=== PATIENT | female | born 1935 | race Caucasian/White ===

== ENCOUNTER 2016-10-05 15:05 | Emergency (ER) | payer MEDICARE, OTHER ==
[2016-10-05] MEDS ORDERED: Sodium Chloride 0.9% 5 ML Syringe FLUSH PRN (15:21)
--- NOTE | 2016-10-05 15:29 | EDM.PDOC ---
ED HPI NEURO - General Chief Complaint: Headache Stated Complaint: Possible TIA Time Seen by Provider: 10/05/16 15:21 Source of Information: Reports: Patient, [facility] records History Limitations: Reports: No limitations - History of Present Illness INITIAL COMMENTS - FREE TEXT/NARRATIVE: PT STATES SHE MAY HAVE PASSED OUT THIS AM AT 0800 WHILE SITTING IN CHAIR AT [employer]. APPROX DURATION WAS 5 MINUTES. HAD ANOTHER SIMILAR EPISODE AT 1430 TODAY AND [facility] STAFF BROUGHT PT TO ER. PT STATES SHE THOUGHT IT WAS A PANIC ATTACK WHICH ACCORDING TO SON HAS THEM OFTEN. DENIES NEW NUMBNESS, FALL, CP, SOB, OR FEVER. 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 Symptom Onset Date: 10/05/16 Symptom Onset Time: 08:00 Timing/Duration: Reports: Minutes: Location (Neuro Complaint): Reports: face Severity: mild Improves with: Reports: None Worsens with: Reports: None Associated Symptoms: Reports: headaches, syncope, nausea/vomiting. Denies: shortness of breath, chest pain, fever/chills - Related Data Allergies/ADRs: Allergies Allergy/AdvReac Type Severity Reaction Status Date / Time hydrochlorathiazide Allergy Cannot Uncoded 10/05/16 15:47 Remember Home Meds: Home Meds Cholecalciferol (Vitamin D3) [Vitamin D3] 1,000 units PO DAILY 11/06/14 [History ] Gluc 2KCl/Chondr/Pavel Hy/Hy Ac [Glucosamine & Chondroitin Cap] 1,000 mg PO DAILY 11/06/14 [History] Latanoprost [Latanoprost] 1 drop EYEBOTH DAILY 11/06/14 [History] Losartan [Cozaar] 100 mg PO DAILY 11/06/14 [History] Lovastatin [Lovastatin] 20 mg PO DAILY 11/06/14 [History] Lutein 20 mg PO DAILY 11/06/14 [History] Metoprolol Tartrate [Lopressor] 100 mg PO DAILY 11/06/14 [History] Naproxen Sodium [Aleve] 220 mg PO DAILY 11/06/14 [History] Niacin 1,500 mg PO DAILY 11/06/14 [History] Omeprazole [Omeprazole] 20 mg PO DAILY 11/06/14 [History] Triamcinolone Acetonide [Kenalog 0.1% Crm] 15 gm TOP TID 11/06/14 [History] amLODIPine Besylate [Amlodipine Besylate] 2.5 mg PO DAILY 11/06/14 [History] Social & Family History - Tobacco Use Smoking Status *Q: Current Every Day Smoker Years of Tobacco use: 0 Used Tobacco, but Quit: No - Alcohol Use Days Per Week of Alcohol Use: 0 - Recreational Drug Use Recreational Drug Use: No - Living Situation & Occupation Living situation: Reports: alone Occupation: retired ED ROS GENERAL - Review of Systems Review Of Systems: ROS reveals no pertinent complaints other than HPI. Constitutional: Reports: no symptoms HEENT: Reports: No symptoms Respiratory: Reports: No Symptoms Cardiovascular: Reports: No symptoms Endocrine: Reports: no symptoms GI/Abdominal: Reports: Nausea : Reports: no symptoms Musculoskeletal: Reports: no symptoms Skin: Reports: no symptoms Neurological: Reports: Headache, Numbness, Pre-Existing Deficit Psychiatric: Reports: No symptoms Hematologic/Lymphatic: Reports: no symptoms Immunologic: Reports: no symptoms ED EXAM, NEURO - Physical Exam Exam: See Below Exam Limited By: No limitations General Appearance: alert, WD/WN, no apparent distress Eye Exam: bilateral eye: normal inspection Ears: normal external exam, normal canal, normal TMs Nose: normal inspection, normal mucosa, no blood Throat/Mouth: Normal inspection, Normal oropharynx, No airway compromise Head Exam: atraumatic, normocephalic Neck: normal inspection, supple Respiratory/Chest: no respiratory distress, lungs clear, normal breath sounds, no accessory muscle use, chest non-tender Cardiovascular: regular rate, rhythm, systolic murmur GI/Abdominal: normal bowel sounds, soft, non tender, no organomegaly, no distention, no abnormal bruit, no mass Neurological: alert, oriented x 3, abnormal light touch Back Exam: normal inspection. No: CVA tenderness (L), CVA tenderness (R) Extremities: normal inspection, non-tender Psychiatric: normal affect, normal mood Skin Exam: Warm, Dry, Intact, Normal color, No rash Course - Vital Signs Last Recorded V/S: Last Vital Signs Temp 96.5 F 10/05/16 15:32 Pulse 52 L 10/05/16 15:32 Resp 16 10/05/16 15:32 BP 169/50 H 10/05/16 15:32 Pulse Ox 96 10/05/16 15:32 - Orders/Labs/Meds Orders: Active Orders 24 hr Category Date Time Status EKG Documentation Completion [RC] ASDIRECTED Care 10/05/16 15:22 Active Peripheral IV Care [RC] . DIRECTED Care 10/05/16 15:22 Active Chest 1V Frontal [CR] Stat Exams 10/05/16 15:21 Taken Head wo Cont [CT] Stat Exams 10/05/16 15:21 Taken Sodium Chloride 0.9% [Syrex Flush] Med 10/05/16 15:21 Active 5 ml FLUSH Q8HR PRN cefTRIAXone [Rocephin] Med 10/05/16 17:27 Once 1 gm IVPUSH ONETIME ONE Peripheral IV Insertion Adult [OM.PC] Urgent Oth 10/05/16 15:21 Ordered Saline Lock Insert [OM.PC] Stat Oth 10/05/16 15:21 Ordered EKG 12 Lead [EK] Stat Ther 10/05/16 15:21 Ordered Medication Orders Sodium Chloride (Syrex Flush) 5 ml FLUSH Q8HR PRN PRN Reason: Keep Vein Open Labs: Laboratory Tests 10/05/16 10/05/16 10/05/16 Range/Units 15:35 15:35 15:35 WBC 7.8 (5.0-10.0) 10^3/uL RBC 4.79 (3.80-5.50) 10^6/uL Hgb 12.8 (12.0-16.0) g/dL Hct 39.3 (37.0-47.0) % MCV 82.1 (82.0-92.0) fL MCH 26.8 L (27.0-31.0) pg MCHC 32.7 (32.0-36.0) g/dL RDW 14.6 H (11.5-14.5) % Plt Count 241 (150-300) 10^3/uL MPV 8.1 (7.4-10.4) fL Add Manual Diff Yes Neutrophils % (Manual) 59 (50-70) % Band Neutrophils % 1 L (4-12) % Lymphocytes % (Manual) 29 (20-40) % Monocytes % (Manual) 5 (2-8) % Eosinophils % (Manual) 5 H (1-3) % Basophils % (Manual) 1 (0-1) % PT 9.9 (8.9-11.4) SEC INR 1.0 (0.9-1.1) APTT 27.7 (20.8-31.2) SEC Sodium 141 (136-145) mmol/L Potassium 4.6 (3.3-5.3) mmol/L Chloride 103 (98-115) mmol/L Carbon Dioxide 31.3 (21.0-32.0) mmol/L BUN 17 (6-25) mg/dL Creatinine 0.85 (0.51-1.17) mg/dL Est Cr Clr Drug Dosing 41.48 mL/min Estimated GFR (MDRD) > 60 mL/min Glucose 98 (70-110) mg/dL Calcium 9.0 (8.7-10.3) mg/dL Total Bilirubin 0.3 (0.2-1.0) mg/dL AST 33 (15-37) U/L ALT 28 (12-78) U/L Alkaline Phosphatase 88 (46-116) IU/L Troponin I 0.05 (0.00-0.070) ng/mL Total Protein 8.3 H (6.4-8.2) g/dL Albumin 3.69 (3.00-4.80) g/dL Specimen Type Urine Color (YELLOW) Urine Appearance (CLEAR) Urine pH (5.0-9.0) Ur Specific [place] (1.005-1.030) Urine Protein (NEGATIVE) mg/dL Urine Glucose (UA) (NEGATIVE) mg/dL Urine Ketones (NEGATIVE) mg/dL Urine Occult Blood (NEGATIVE) Urine Nitrite (NEGATIVE) Urine Bilirubin (NEGATIVE) Urine Urobilinogen (0.2-1.0) E.U./dL Ur Leukocyte Esterase (NEGATIVE) Urine RBC /HPF Urine WBC /HPF Urine Bacteria (NONE TO FEW) /HPF 10/05/16 Range/Units 16:30 WBC (5.0-10.0) 10^3/uL RBC (3.80-5.50) 10^6/uL Hgb (12.0-16.0) g/dL Hct (37.0-47.0) % MCV (82.0-92.0) fL MCH (27.0-31.0) pg MCHC (32.0-36.0) g/dL RDW (11.5-14.5) % Plt Count (150-300) 10^3/uL MPV (7.4-10.4) fL Add Manual Diff Neutrophils % (Manual) (50-70) % Band Neutrophils % (4-12) % Lymphocytes % (Manual) (20-40) % Monocytes % (Manual) (2-8) % Eosinophils % (Manual) (1-3) % Basophils % (Manual) (0-1) % PT (8.9-11.4) SEC INR (0.9-1.1) APTT (20.8-31.2) SEC Sodium (136-145) mmol/L Potassium (3.3-5.3) mmol/L Chloride (98-115) mmol/L Carbon Dioxide (21.0-32.0) mmol/L BUN (6-25) mg/dL Creatinine (0.51-1.17) mg/dL Est Cr Clr Drug Dosing mL/min Estimated GFR (MDRD) mL/min Glucose (70-110) mg/dL Calcium (8.7-10.3) mg/dL Total Bilirubin (0.2-1.0) mg/dL AST (15-37) U/L ALT (12-78) U/L Alkaline Phosphatase (46-116) IU/L Troponin I (0.00-0.070) ng/mL Total Protein (6.4-8.2) g/dL Albumin (3.00-4.80) g/dL Specimen Type Urincath Urine Color Yellow (YELLOW) Urine Appearance Slightly cloudy H (CLEAR) Urine pH 5.5 (5.0-9.0) Ur Specific [place] 1.015 (1.005-1.030) Urine Protein Negative (NEGATIVE) mg/dL Urine Glucose (UA) Negative (NEGATIVE) mg/dL Urine Ketones Negative (NEGATIVE) mg/dL Urine Occult Blood Trace-lysed H (NEGATIVE) Urine Nitrite Negative (NEGATIVE) Urine Bilirubin Negative (NEGATIVE) Urine Urobilinogen 0.2 (0.2-1.0) E.U./dL Ur Leukocyte Esterase Small H (NEGATIVE) Urine RBC 0-5 /HPF Urine WBC 20-30 H /HPF Urine Bacteria Moderate H (NONE TO FEW) /HPF Meds: Medications Generic Name Dose Route Start Last Admin Trade Name Freq PRN Reason Stop Dose Admin Sodium Chloride 5 ml 10/05/16 15:21 Syrex Flush FLUSH Q8HR PRN Keep Vein Open Discontinued Medications Generic Name Dose Route Start Last Admin Trade Name Freq PRN Reason Stop Dose Admin Ondansetron HCl 4 mg 10/05/16 15:36 10/05/16 17:00 Zofran IVPUSH 10/05/16 15:37 4 mg ONETIME ONE Administration Departure - Departure Time of Disposition: 18:03 Disposition: DC/Tfer to [facility] Condition: good Clinical Impression: Panic attacks Urinary tract infection Qualifiers: Urinary tract infection type: acute cystitis Hematuria presence: without hematuria Qualified Code(s): N30.00 - Acute cystitis without hematuria Instructions: Urinary Tract Infection, Adult, Panic Attacks, [id number] - My Orders Last 24 Hours: My Active Orders 10/05/16 15:21 Chest 1V Frontal [CR] Stat Head wo Cont [CT] Stat Sodium Chloride 0.9% [Syrex Flush] 5 ml FLUSH Q8HR PRN Peripheral IV Insertion Adult [OM.PC] Urgent Saline Lock Insert [OM.PC] Stat EKG 12 Lead [EK] Stat 10/05/16 15:22 EKG Documentation Completion [RC] ASDIRECTED Peripheral IV Care [RC] . DIRECTED 10/05/16 17:27 cefTRIAXone [Rocephin] 1 gm IVPUSH ONETIME ONE - Assessment/Plan Last 24 Hours: My Active Orders 10/05/16 15:21 Chest 1V Frontal [CR] Stat Head wo Cont [CT] Stat Sodium Chloride 0.9% [Syrex Flush] 5 ml FLUSH Q8HR PRN Peripheral IV Insertion Adult [OM.PC] Urgent Saline Lock Insert [OM.PC] Stat EKG 12 Lead [EK] Stat 10/05/16 15:22 EKG Documentation Completion [RC] ASDIRECTED Peripheral IV Care [RC] . DIRECTED 10/05/16 17:27 cefTRIAXone [Rocephin] 1 gm IVPUSH ONETIME ONE Assessment:: UTI Plan: BACTRIM / F-U WITH PCP IN 2 DAYS
[2016-10-05] MEDS ORDERED: Ondansetron 4 MG/2 ML SDV IVPUSH ONE (15:36)
[2016-10-05 16:08] LABS: CHLORIDE,CL 103 mmol/L (98-115); SODIUM,NA 141 mmol/L (136-145)
[2016-10-05] MEDS ORDERED: cefTRIAXone 1 GM Vial IVPUSH ONE (17:27)
[2016-10-05] MEDS ORDERED: Acetaminophen 325 MG Tab ONE (18:23)
[2016-10-05 20:12] VITALS: BP 145/73
== END 2016-10-05 18:30 ==
LOC: KA.ED 15:05
DX: N30.00 Acute cystitis without hematuria (principal); F41.0 Panic disorder [episodic paroxysmal anxiety]; Z88.8 Allergy status to other drugs, medicaments and biological substances; F17.210 Nicotine dependence, cigarettes, uncomplicated
CPT/HCPCS: 36415; 70450; 71010; 80053; 81001; 84484; 85025; 85610; 85730; 96374; 96375; 99285; J0696; J2405; 93005; 99284

== ENCOUNTER 2017-07-27 03:22 | Emergency (ER) | payer MEDICARE, OTHER ==
--- NOTE | 2017-07-27 04:36 | EDM.PDOC ---
ED HPI GENERAL MEDICAL PROBLEM - General Chief Complaint: Lower Extremity Injury/Pain Stated Complaint: R hip-leg pain Time Seen by Provider: 07/27/17 04:02 Source of Information: Reports: Patient History Limitations: Reports: No Limitations - History of Present Illness INITIAL COMMENTS - FREE TEXT/NARRATIVE: Patient presents via ambulance from [place] with complaint of right leg pain. Patient tells me she went to bed around 9pm and while getting in bed with the lift, she bumped her right lateral knee against the wall. A few hours later she awoke with pain at the knee. She took Tylenol but it didn't help that much. Pain is 5/5. She hasn't put weight on her leg for 3 years and denies any falls. No history of heart disease or clots. 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 She has told me a couple of times that she hasn't been able to walk on her right leg for three years but also tell me that she walked fine until her stroke last October. She is getting therapy for her legs. 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 Treatments [employer]: Reports: Acetaminophen - Related Data Allergies Allergy/AdvReac Type Severity Reaction Status Date / Time dimethyl sulfoxide Allergy Cannot Uncoded 07/27/17 03:41 Remember hydrochlorathiazide Allergy Cannot Uncoded 10/05/16 15:47 Remember Home Meds: Home Meds Cholecalciferol (Vitamin D3) [Vitamin D3] 1,000 units PO DAILY 11/06/14 [History ] Gluc 2KCl/Chondr/Pavel Hy/Hy Ac [Glucosamine & Chondroitin Cap] 1,000 mg PO DAILY 11/06/14 [History] Latanoprost [Latanoprost] 1 drop EYEBOTH DAILY 11/06/14 [History] Losartan [Cozaar] 100 mg PO DAILY 11/06/14 [History] Lovastatin [Lovastatin] 20 mg PO DAILY 11/06/14 [History] Lutein 20 mg PO DAILY 11/06/14 [History] Metoprolol Tartrate [Lopressor] 100 mg PO DAILY 11/06/14 [History] Naproxen Sodium [Aleve] 220 mg PO DAILY 11/06/14 [History] Niacin 1,500 mg PO DAILY 11/06/14 [History] Omeprazole [Omeprazole] 20 mg PO DAILY 11/06/14 [History] Triamcinolone Acetonide [Kenalog 0.1% Crm] 15 gm TOP TID 11/06/14 [History] amLODIPine Besylate [Amlodipine Besylate] 2.5 mg PO DAILY 11/06/14 [History] Cephalexin [Keflex] 500 mg PO TID #15 cap 10/05/16 [Rx] Social & Family History - Tobacco Use Smoking Status *Q: Former Smoker Years of Tobacco use: 0 Used Tobacco, but Quit: Yes Month Tobacco Last Used: october 2015 - Caffeine Use Caffeine Use: Reports: Coffee - Alcohol Use Days Per Week of Alcohol Use: 0 - Recreational Drug Use Recreational Drug Use: No - Living Situation & Occupation Living situation: Reports: Alone Occupation: Retired Review of Systems - Review of Systems Review Of Systems: See Below Constitutional: Denies: Chills, Fever Eyes: Denies: Vision Change Mouth/Throat: Reports: No Symptoms Respiratory: Denies: Shortness of Breath, Cough Cardiovascular: Denies: Chest Pain, Irregular Heart Rate, Lightheadedness GI/Abdominal: Denies: Abdominal Pain, Diarrhea, Nausea, Vomiting Genitourinary: Reports: Incontinence. Denies: Dysuria Musculoskeletal: Reports: Back Pain (arthritis). Denies: Neck Pain, Shoulder Pain, Joint Swelling Skin: Denies: Cyanosis, Jaundice, Mottled, Pallor, Diaphoresis Neurological: Denies: Numbness, Tingling, Trouble Speaking ED EXAM, GENERAL - Physical Exam Exam: See Below Exam Limited By: No Limitations General Appearance: Alert, No Apparent Distress, Obese Eye Exam: Bilateral Eye: EOMI, Normal Inspection, PERRL Ears: Normal External Exam, Hearing Grossly Normal Nose: Normal Inspection, No Blood Throat/Mouth: Normal Inspection, Normal Lips, Normal Voice, No Airway Compromise Head: Atraumatic, Normocephalic Neck: Normal Inspection, Supple, Non-Tender. No: Carotid Bruit Respiratory/Chest: No Respiratory Distress, Lungs Clear, Normal Breath Sounds. No: Stridor Cardiovascular: Regular Rate, Rhythm (with mild bradycardia), No JVD, Systolic Murmur Extremities: No Pedal Edema, Normal Capillary Refill, Other (Moderate ROM of right knee and hip is well tolerated without pain. Palpation of the leg/knee reveals pain primarily at the right patella but no ecchymosis or bruising. Calf is supple and non-tender to squeeze without swelling. No hip pain on ROM or palpation. She can dorsiflex and plantar flex both feet okay and sensation is intact bilat. No assymetric swelling. She has chronic weakness of both legs and is unable to raise them from the table.). No: Jacques's Sign, Mottled, Pallor, Redness Neurological: Alert, Oriented, No Motor/Sensory Deficits Psychiatric: Normal Affect, Normal Mood Skin Exam: Warm, Dry, Intact, Normal Color, No Rash Course - Vital Signs Last Recorded V/S: Last Vital Signs Temp 98.8 F 07/27/17 03:41 Pulse 52 L 07/27/17 03:41 Resp 20 07/27/17 03:41 BP 144/52 H 07/27/17 03:41 Pulse Ox 94 L 07/27/17 03:41 - Re-Assessments/Exams Free Text/Narrative Re-Assessment/Exam: 07/27/17 04:50 Pain is decreasing with application of ice to the anterior knee. I see no evidence of fracture or DVT. Discussed findings with patient. She has been stable throughout ER course. Departure - Departure Time of Disposition: 04:54 Disposition: DC/Tfer to SNF 03 Condition: Fair Clinical Impression: Right anterior knee pain - Discharge Information Referrals: Park Sam PA-C [Primary Care Provider] - Additional Instructions: 1. Continue to use Tylenol and ice as needed to control knee pain. 2. May try NSAIDS if okay with PCP. 3. Recheck with PCP if persisting or worsening.
[2017-07-27 05:05] VITALS: BP 131/50
== END 2017-07-27 05:15 ==
LOC: KA.ED 03:22
DX: M25.561 Pain in right knee (principal); Z87.891 Personal history of nicotine dependence; Z79.899 Other long term (current) drug therapy; Z88.8 Allergy status to other drugs, medicaments and biological substances
CPT/HCPCS: 99283; 99284

== ENCOUNTER 2019-06-27 12:21 | Inpatient (IN) | payer MEDICARE, OTHER, MEDICAID ==
[2019-06-27] MEDS ORDERED: Lidocaine 2% 100 MG/5 ML Syringe IVPUSH PRN (12:33)
[2019-06-27] MEDS ORDERED: Atropine 0.1 MG/ML 10 ML Syringe IVPUSH PRN (12:33)
[2019-06-27] MEDS ORDERED: Nitroglycerin 0.4 MG Tab.SL SL PRN (12:33)
[2019-06-27] MEDS ORDERED: EPINEPHrine 1:10,000 1 MG/10 ML Syringe IVPUSH PRN (12:33)
[2019-06-27] MEDS ORDERED: Metoprolol Tartrate 5 MG/5 ML SDV IVPUSH ONE ×3 (14:52→19:29)
[2019-06-27] MEDS ORDERED: Albuterol 0.083% 2.5 MG/3 ML Neb Soln INH PRN (15:00)
[2019-06-27] MEDS ORDERED: Magnesium Hydroxide 400 MG/5 ML Susp 30 ML Cup PO PRN (15:02)
[2019-06-27] MEDS ORDERED: BENZOCAINE BUCCAL PRN (15:02)
[2019-06-27] MEDS ORDERED: GUAIFENESIN PO PRN (15:02)
[2019-06-27] MEDS: Sodium Chloride 0.9% 10 ML Syringe FLUSH PRN ×2 (18:59→20:14)
[2019-06-27] MEDS ORDERED: Metoprolol Tartrate 5 MG/5 ML SDV IVPUSH PRN (19:18)
[2019-06-27] MEDS: Acetaminophen 325 MG Tab PO SCH (20:49)
[2019-06-27] MEDS: Gabapentin 100 MG Cap PO SCH (20:56)
[2019-06-27] MEDS: atorvaSTATin 10 MG Tab PO SCH (20:58)
[2019-06-27] MEDS: Apixaban 5 MG Tab PO SCH (20:59)
[2019-06-27] MEDS: traZODone 50 MG Tab PO SCH (21:00)
[2019-06-27] MEDS ORDERED: busPIRone 5 MG Tab PO SCH (21:00)
[2019-06-27] MEDS: Metoprolol Tartrate 25 MG Tab PO SCH (21:01)
[2019-06-27] MEDS: Brimonidine 0.2% Ophth Soln 15 ML Bottle EYEBOTH SCH (21:55)
[2019-06-27] MEDS: Latanoprost 0.005% Ophth Soln 2.5 ML Bottle EYEBOTH SCH (22:06)
[2019-06-27] MEDS: Polyvinyl Alcohol 1.4% Ophth Soln 15 ML Bottle EYEBOTH SCH (22:09)
[2019-06-28] MEDS ORDERED: Non-Formulary Medication 1 Each (Pantoprazole Sodium [Protonix] 20 MG) PO SCH (05:00)
[2019-06-28] MEDS: Polyvinyl Alcohol 1.4% Ophth Soln 15 ML Bottle EYEBOTH SCH (05:26)
[2019-06-28] MEDS: Levothyroxine 50 MCG Tab PO SCH (07:39)
[2019-06-28] MEDS: Omeprazole 20 MG Cap.CR PO SCH (07:40)
[2019-06-28] MEDS: Aspirin 81 MG Tab.Chew PO SCH (07:40)
[2019-06-28] MEDS: busPIRone 5 MG Tab PO SCH ×2 (07:40→16:25)
[2019-06-28 08:32] LABS: ANION GAP 18.4 mmol/L (5-15); CHLORIDE,CL 102 mmol/L (98-115); SODIUM,NA 145 mmol/L (136-145)
[2019-06-28] MEDS: Multivitamins with Minerals/Iron/Folic Acid/Lycopene Tab PO SCH (09:10)
[2019-06-28] MEDS: Apixaban 5 MG Tab PO SCH ×2 (09:10→20:18)
[2019-06-28] MEDS: Cholecalciferol (Vitamin D3) 25 MCG Tab PO SCH (09:10)
[2019-06-28] MEDS: Gabapentin 100 MG Cap PO SCH ×2 (09:10→20:25)
[2019-06-28] MEDS: B.Bifidum/B.Longum/L.Acidophilus/L.Rhamnosus (Probiotic) Cap PO SCH (09:10)
[2019-06-28] MEDS: Acetaminophen 325 MG Tab PO SCH ×2 (09:10→20:19)
[2019-06-28] MEDS: Sertraline 50 MG Tab PO SCH (09:10)
[2019-06-28] MEDS: Metoprolol Tartrate 25 MG Tab PO SCH ×2 (09:10→20:20)
[2019-06-28] MEDS: Brimonidine 0.2% Ophth Soln 15 ML Bottle EYEBOTH SCH ×2 (09:22→20:17)
[2019-06-28] MEDS ORDERED: Losartan 25 MG Tab PO SCH (09:30)
[2019-06-28] MEDS: Indacaterol/Glycopyrrolate 1 EA Cap.W.Dev Kit of 6 IH SCH ×2 (09:36→20:27)
--- NOTE | 2019-06-28 10:55 | PCM.PN ---
- General Info Date of Service: 06/28/19 Functional Status: Reports: Pain Controlled, Tolerating Diet, Urinating. Denies : New Symptoms - Review of Systems General: Denies: Fever HEENT: Reports: Other (drainage of left eye). Denies: Eye Pain, Headaches Pulmonary: Denies: Shortness of Breath, Cough Cardiovascular: Denies: Chest Pain Gastrointestinal: Denies: Abdominal Pain Musculoskeletal: Reports: Leg Pain (left), Foot Pain (left) Neurological: Denies: Headache - Patient Data Vitals - Most Recent: Last Vital Signs Temp 96.8 F 06/28/19 06:18 Pulse 98 06/28/19 09:10 Resp 24 H 06/28/19 06:18 BP 110/71 06/28/19 09:10 Pulse Ox 94 L 06/28/19 06:18 Weight - Most Recent: 196 lb I&O - Last 24 Hours: Intake & Output 06/27/19 06/28/19 06/28/19 22:59 06:59 14:59 Intake Total 520 300 Balance 520 300 Lab Results Last 24 Hours: Laboratory Results - last 24 hr 06/27/19 06/27/19 06/27/19 Range/Units 13:00 13:00 15:00 WBC (5.00-10.00) 10^3/uL RBC (3.80-5.50) 10^6/uL Hgb (12.0-16.0) g/dL Hct (37.0-47.0) % MCV (82.0-92.0) fL MCH (27.0-31.0) pg MCHC (32.0-36.0) g/dL RDW (11.5-14.5) % Plt Count (150-400) 10^3/uL MPV (7.4-10.4) fL Immature Gran % (Auto) (0.0-5.0) % Neut % (Auto) (50.0-70.0) % Lymph % (Auto) (20.0-40.0) % [place] % (Auto) (2.0-8.0) % Eos % (Auto) (1.0-3.0) % Baso % (Auto) (0.0-1.0) % Immature Gran # (Auto) (0.00-0.50) 10^3/uL Neut # (Auto) (2.50-7.00) 10^3/uL Lymph # (Auto) (1.00-4.00) 10^3/uL [place] # (Auto) (0.10-0.80) 10^3/uL Eos # (Auto) (0.10-0.30) 10^3/uL Baso # (Auto) (0.00-0.10) 10^3/uL Sodium (136-145) mmol/L Potassium (3.3-5.3) mmol/L Chloride (98-115) mmol/L Carbon Dioxide (21.0-32.0) mmol/L Anion Gap (5-15) mmol/L BUN (6-25) mg/dL Creatinine (0.51-1.17) mg/dL Est Cr Clr Drug Dosing mL/min Estimated GFR (MDRD) mL/min Glucose (75 - 99) mg/dL Calcium (8.7-10.3) mg/dL Magnesium 1.8 (1.8-2.4) mg/dL Troponin I 0.04 (0.00-0.070) ng/mL B-Natriuretic Peptide 143 H (0-100) pg/mL Free T4 < 0.20 L (0.59-1.17) ng/dL TSH, Ultra Sensitive 78.100 H (0.340-4.820) uIU/mL 06/28/19 06/28/19 Range/Units 08:05 08:05 WBC 6.68 (5.00-10.00) 10^3/uL RBC 4.57 (3.80-5.50) 10^6/uL Hgb 12.4 (12.0-16.0) g/dL Hct 40.0 (37.0-47.0) % MCV 87.5 D (82.0-92.0) fL MCH 27.1 (27.0-31.0) pg MCHC 31.0 L (32.0-36.0) g/dL RDW 15.0 H (11.5-14.5) % Plt Count 191 (150-400) 10^3/uL MPV 10.0 (7.4-10.4) fL Immature Gran % (Auto) 0.1 (0.0-5.0) % Neut % (Auto) 73.2 H (50.0-70.0) % Lymph % (Auto) 12.6 L (20.0-40.0) % [place] % (Auto) 9.0 H (2.0-8.0) % Eos % (Auto) 4.5 H (1.0-3.0) % Baso % (Auto) 0.6 (0.0-1.0) % Immature Gran # (Auto) 0.01 (0.00-0.50) 10^3/uL Neut # (Auto) 4.89 (2.50-7.00) 10^3/uL Lymph # (Auto) 0.84 L (1.00-4.00) 10^3/uL [place] # (Auto) 0.60 (0.10-0.80) 10^3/uL Eos # (Auto) 0.30 (0.10-0.30) 10^3/uL Baso # (Auto) 0.04 (0.00-0.10) 10^3/uL Sodium 145 (136-145) mmol/L Potassium 4.1 (3.3-5.3) mmol/L Chloride 102 (98-115) mmol/L Carbon Dioxide 28.7 (21.0-32.0) mmol/L Anion Gap 18.4 H (5-15) mmol/L BUN 13 (6-25) mg/dL Creatinine 0.76 (0.51-1.17) mg/dL Est Cr Clr Drug Dosing 43.95 mL/min Estimated GFR (MDRD) > 60 mL/min Glucose 93 (75 - 99) mg/dL Calcium 8.8 (8.7-10.3) mg/dL Magnesium (1.8-2.4) mg/dL Troponin I (0.00-0.070) ng/mL B-Natriuretic Peptide (0-100) pg/mL Free T4 (0.59-1.17) ng/dL TSH, Ultra Sensitive (0.340-4.820) uIU/mL Med Orders - Current: Current Medications Acetaminophen (Tylenol) 650 mg PO BID [facility] Last Admin: 06/28/19 09:10 Dose: 650 mg Albuterol (Proventil Neb Soln) 2.5 mg INH BID PRN PRN Reason: Shortness of Breath Apixaban (Eliquis) 5 mg PO BID [facility] [place] Last Admin: 06/28/19 09:10 Dose: 5 mg Artificial Tears (Refresh Tears 0.5%) 0 ml EYEBOTH TID@0500,1100,2000 [facility] [place] Aspirin (Aspirin) 81 mg PO WITHBREAKFAST [facility] Last Admin: 06/28/19 07:40 Dose: 81 mg Atorvastatin Calcium (Lipitor) 20 mg PO BEDTIME [facility] Last Admin: 06/27/19 20:58 Dose: 20 mg Atropine Sulfate (Atropine 0.1 Mg/Ml) 0 mg IVPUSH ASDIRECTED PRN PRN Reason: Heart. Brimonidine Tartrate (Brimonidine Tartrate 0.2% Ophth Soln) 0 ml EYEBOTH BID [facility] Last Admin: 06/28/19 09:22 Dose: 1 drop Buspirone HCl (Buspar) 5 mg PO 0800,1600 [facility] [place] Last Admin: 06/28/19 07:40 Dose: 5 mg Cholecalciferol (Vitamin D3) 50 mcg PO DAILY [facility] [place] Last Admin: 06/28/19 09:10 Dose: 50 mcg Epinephrine HCl (Epinephrine 1:10,000) 1 mg IVPUSH ASDIRECTED PRN PRN Reason: Heart. Gabapentin (Neurontin) 100 mg PO DAILY [facility] [place] Last Admin: 06/28/19 09:10 Dose: 100 mg Gabapentin (Neurontin) 200 mg PO BEDTIME [facility] [place] Last Admin: 06/27/19 20:56 Dose: 200 mg Glycopyrrolate/Indacaterol (Utibron Neohaler 27.5-15.6 Mcg) 0 each IH BID [facility] [place] Last Admin: 06/28/19 09:36 Dose: 1 inhalation Lactobacillus Acidophilus/Rhamnosus (Multi-Krys Plus) 1 cap PO DAILY [facility] [place] Last Admin: 06/28/19 09:10 Dose: 1 cap Latanoprost (Xalatan 0.005% Ophth Soln) 0 ml EYEBOTH BEDTIME [facility] [place] Last Admin: 06/27/19 22:06 Dose: 1 drop Levothyroxine Sodium (Synthroid) 50 mcg PO ACBREAKFAST [facility] [place] Last Admin: 06/28/19 07:39 Dose: 50 mcg Lidocaine HCl (Xylocaine 2%) 0 mg IVPUSH ASDIRECTED PRN PRN Reason: Heart. Magnesium Hydroxide (Milk Of Magnesia) 30 ml PO DAILY PRN PRN Reason: Constipation Metoprolol Tartrate (Lopressor) 25 mg PO BID [facility] [place] Last Admin: 06/28/19 09:10 Dose: 25 mg Multivitamins/Minerals (Centrum) 1 tab PO DAILY [facility] [place] Last Admin: 06/28/19 09:10 Dose: 1 tab Nitroglycerin (Nitrostat) 0.4 mg SL ASDIRECTED PRN PRN Reason: Heart. Omeprazole (Omeprazole) 20 mg PO ACBREAKFAST [facility] [place] Last Admin: 06/28/19 07:40 Dose: 20 mg Sertraline HCl (Zoloft) 50 mg PO DAILY [facility] [place] Last Admin: 06/28/19 09:10 Dose: 50 mg Sodium Chloride (Saline Flush) 10 ml FLUSH Q8HR PRN PRN Reason: keep vein open Last Admin: 06/27/19 20:14 Dose: 10 ml Trazodone HCl (Trazodone) 50 mg PO BEDTIME [facility] [place] Last Admin: 06/27/19 21:00 Dose: 50 mg Discontinued Medications Artificial Tears (Liquitears 1.4% Ophth Soln) 0 ml EYEBOTH TID@05,11,20 [facility] [place] Last Admin: 06/28/19 05:26 Dose: Not Given Buspirone HCl (Buspar) 5 mg PO BID [facility] [place] Last Admin: 06/27/19 20:59 Dose: 5 mg Losartan Potassium (Cozaar) 75 mg PO DAILY [facility] [place] Last Admin: 06/28/19 09:32 Dose: Not Given Metoprolol Tartrate (Lopressor) 5 mg IVPUSH ONETIME ONE Stop: 06/27/19 14:53 Last Admin: 06/27/19 16:38 Dose: 5 mg Metoprolol Tartrate (Lopressor) 5 mg IVPUSH ONETIME ONE Stop: 06/27/19 18:39 Last Admin: 06/27/19 18:54 Dose: 5 mg Metoprolol Tartrate (Lopressor) 5 mg IVPUSH Q1H PRN PRN Reason: Tachycardia Metoprolol Tartrate (Lopressor) 5 mg IVPUSH ONETIME ONE Stop: 06/27/19 19:30 Last Admin: 06/27/19 20:12 Dose: 5 mg Non-Formulary Medication (Benzocaine [Orajel]) 1 applic BUCCAL TID PRN PRN Reason: sore gums Non-Formulary Medication (Guaifenesin [Liquituss Gg]) 10 ml PO BID PRN PRN Reason: Cough Non-Formulary Medication (Pantoprazole Sodium [Protonix]) 20 mg PO DAILY@0500 [facility] - Exam Quality Assessment: DVT Prophylaxis (on Eliquis). No: Supplemental Oxygen (94% on room air) General: Alert, Oriented (to self), Cooperative, No Acute Distress HEENT: Other (conjunctiva clear bilaterally, with yellowish discharge to left eyelashes) Lungs: Clear to Auscultation (upper lobes), Normal Respiratory Effort, Crackles (to bilateral bases). No: Wheezing Cardiovascular: Irregular Rhythm, Tachycardia Extremities: Pedal Edema (trace pitting edema to BLE) Skin: Warm, Dry, Intact Neurological: Normal Speech, Other (hemiparesis of left arm and leg) Psy/Mental Status: Alert, Normal Affect, Normal Mood. No: Anxious Sepsis Event Note - Evaluation Sepsis Screening Result: Sepsis Risk - Focused Exam Vital Signs: Vital Signs Temp Pulse Pulse Resp BP BP Pulse Ox 06/28/19 09:10 98 110/71 06/28/19 06:18 96.8 F 105 H 24 H 131/88 94 L 06/28/19 03:00 96.7 F 110 H 28 H 110/76 93 L 06/27/19 23:00 96.6 F 24 H 107/75 91 L Date Exam was Performed: 06/28/19 Time Exam was Performed: 10:56 - Problem List Review Problem List Initiated/Reviewed/Updated: Yes - My Orders Last 24 Hours: My Active Orders 06/27/19 12:23 Up With Assistance [RC] ASDIRECTED CULTURE SPUTUM + SMEAR [RM] Stat Sodium Chloride 0.9% [Saline Flush] 10 ml FLUSH Q8HR PRN Saline Lock Insert [OM.PC] Routine Resuscitation Status Routine 06/27/19 12:24 Admission Status [Patient Status] [ADT] Routine Oxygen Therapy [RC] PRN VTE/DVT Education [RC] PER UNIT ROUTINE Vital Signs [RC] 0300,0700,1100,1500,1900,2300 06/27/19 12:33 Telemetry Monitoring [Cardiac Monitoring] [RC] 0300,0700,1100,1500,1900,2300 Atropine [Atropine 0.1 MG/ML] See Dose Instructions IVPUSH ASDIRECTED PRN EPINEPHrine [EPINEPHrine 1:10,000] 1 mg IVPUSH ASDIRECTED PRN Lidocaine 2% [Xylocaine 2%] See Dose Instructions IVPUSH ASDIRECTED PRN Nitroglycerin [Nitrostat] 0.4 mg SL ASDIRECTED PRN 06/27/19 15:00 FREE T3 [REF] Routine Albuterol [Proventil Neb Soln] 2.5 mg INH BID PRN 06/27/19 15:02 Magnesium Hydroxide [Milk of Magnesia] 30 ml PO DAILY PRN 06/27/19 21:00 Acetaminophen [Tylenol] 650 mg PO BID Apixaban [Eliquis] 5 mg PO BID Brimonidine Tartrate [Brimonidine Tartrate 0.2% Ophth Soln] 0 ml EYEBOTH BID Gabapentin [Neurontin] 200 mg PO BEDTIME Latanoprost [Xalatan 0.005% Ophth Soln] 0 ml EYEBOTH BEDTIME Metoprolol Tartrate [Lopressor] 25 mg PO BID atorvaSTATin [Lipitor] 20 mg PO BEDTIME traZODone 50 mg PO BEDTIME 06/27/19 Dinner Pureed Diet [DIET] 06/28/19 07:30 Levothyroxine [Synthroid] 50 mcg PO ACBREAKFAST Omeprazole 20 mg PO ACBREAKFAST 06/28/19 08:00 Aspirin 81 mg PO WITHBREAKFAST busPIRone [Buspar] 5 mg PO 0800,1600 06/28/19 09:00 B.Bif/B.Long/L.Acidoph/L.Rhamn [Multi-Krys Plus] 1 cap PO DAILY Cholecalciferol (Vitamin D3) [Vitamin D3] 50 mcg PO DAILY FA/Lycopene/Lut/MV,Ca,Iron,Min [Centrum] 1 tab PO DAILY Gabapentin [Neurontin] 100 mg PO DAILY Indacaterol/Glycopyrrolate [Utibron Neohaler 27.5-15.6 MCG] 0 each IH BID Sertraline [Zoloft] 50 mg PO DAILY 06/28/19 11:00 Carboxymethylcellulose Sodium [Refresh Tears 0.5%] 0 ml EYEBOTH TID@0500,1100, 2000 06/29/19 05:11 BMP [BASIC METABOLIC PANEL,BMP] [CHEM] AM CBC WITH AUTO DIFF [HEME] AM - Plan Plan:: HPI: This is an 84 yo female who was evaluated in the clinic yesterday due to shortness of breath, weakness, and tachycardia. ID reported that patient had two emesis on 06/24 and 06/25/19 and the following day she required oxygen for O2 sat of 88-89%. Reported to have a congested cough, diminished lung sounds, and tachycardia. Weight down 5 lbs in approximately 2 weeks. Patient was found to be in new onset atrial flutter/fib with concern for aspiration pneumonia. She was subsequently admitted for further work-up and treatment. She is a resident of the [facility]. Pertinent Clinic Work-up: WBC 5.7 w/o neutrophilia CXR noted radiographically mild fluid overload or failure ESR 31 EKG atrial flutter-fibrillation with RVR (113 bpm), LVH, inferior and anteroseptal infarcts-age undetermined Overnight update: Received 15 mg of lopressor IV and started on lopressor 25 mg at bedtime with notable improvement in heart rate. Has remained afebrile and no oxygen requirement. Primary Impression/Plan: Atrial flutter-fibrillation, new onset. Continue with lopressor 25 mg BID, will titrate up as needed. Continue with telemetry. [id number] score 7. Continue eliquis 5 mg BID. Mg 1.8. TSH 78, Free T4 <0.02. K 4.1. Creatinine 0.76. Tachypnea, likely related to tachycardia. WBC 6.68 with 73% neutrophils. Procalcitonin 0.04. CXR not showing infiltrate. BNP 143. Does not appear to be clinically fluid overloaded. Troponin 0.04. Will continue to monitor. Does have underlying COPD. Will add incentive spirometry. Primary hypothyroidism, new onset. TSH 78, Free T4 <0.02, T3 pending. Initiated levothyroxine 50 mcg daily this morning. Repeat level in 8 weeks. Secondary Impression/Plan: COPD. Continue albuterol neb PRN, Utibron Neohaler (therapeutic substitution). HTN. Holding losartan until lopressor dose is sufficient. Likely will restart losartan at 25-50 mg daily instead of previous 75 mg dose. 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 Decreased home aspirin to 81 mg daily given addition of eliquis. Will require referral to anti-coag clinic on discharge. Chronic diastolic CHF. ECHO (2014) EF 60%, normal systolic function, mild diastolic dysfunction. Not on any diuretics. HLD. Continue lipitor 40 mg daily. LDL 93 (06/2019). UMBERTO. Continue buspar 5 mg BID, zoloft 50 mg daily. Panic disorder. Psychophysiological insomnia. Continue trazodone 50 mg at HS. Normocytic anemia, history. Postherpetic neuralgia. Continue gabapentin 100 mg AM and 200 mg PM. Bilateral hearing loss. GERD. Continue omeprazole 20 mg daily. OA of bilateral knees. Continue tylenol 650 mg BID. Glaucoma. Continue brimodine, refresh tears, and latanoprost. DVT prophylaxis. On eliquis. Overall plan: Continue to monitor HR and BP and titrate medications as necessary. Continue to monitor for fevers or hemodynamic instability. Recheck labs in the AM.
[2019-06-28] MEDS: Carboxymethylcellulose Sodium 0.5% Ophth Soln 15 ML Bottle EYEBOTH SCH ×2 (11:30→19:45)
[2019-06-28] MEDS: traZODone 50 MG Tab PO SCH (20:23)
[2019-06-28] MEDS: atorvaSTATin 10 MG Tab PO SCH (20:23)
[2019-06-28] MEDS: Latanoprost 0.005% Ophth Soln 2.5 ML Bottle EYEBOTH SCH (20:30)
[2019-06-29] MEDS: Carboxymethylcellulose Sodium 0.5% Ophth Soln 15 ML Bottle EYEBOTH SCH ×3 (05:10→20:16)
[2019-06-29] MEDS: Omeprazole 20 MG Cap.CR PO SCH (07:28)
[2019-06-29] MEDS: Levothyroxine 50 MCG Tab PO SCH (07:28)
[2019-06-29 07:58] LABS: ANION GAP 19.6 mmol/L (5-15); CHLORIDE,CL 127 mmol/L (98-115)
[2019-06-29 08:00] LABS: SODIUM,NA 169 mmol/L (136-145)
[2019-06-29] MEDS: busPIRone 5 MG Tab PO SCH ×2 (09:01→17:04)
[2019-06-29] MEDS: B.Bifidum/B.Longum/L.Acidophilus/L.Rhamnosus (Probiotic) Cap PO SCH (09:01)
[2019-06-29] MEDS: Cholecalciferol (Vitamin D3) 25 MCG Tab PO SCH (09:01)
[2019-06-29] MEDS: Metoprolol Tartrate 25 MG Tab PO SCH ×2 (09:02→20:46)
[2019-06-29] MEDS: Apixaban 5 MG Tab PO SCH ×2 (09:02→20:42)
[2019-06-29] MEDS: Acetaminophen 325 MG Tab PO SCH ×2 (09:02→20:40)
[2019-06-29] MEDS: Gabapentin 100 MG Cap PO SCH ×2 (09:02→20:47)
[2019-06-29] MEDS: Sertraline 50 MG Tab PO SCH (09:02)
[2019-06-29] MEDS: Aspirin 81 MG Tab.Chew PO SCH (09:02)
[2019-06-29] MEDS: Multivitamins with Minerals/Iron/Folic Acid/Lycopene Tab PO SCH (09:02)
[2019-06-29 09:08] LABS: CHLORIDE,CL 105 mmol/L (98-115); SODIUM,NA 143 mmol/L (136-145)
[2019-06-29] MEDS: Brimonidine 0.2% Ophth Soln 15 ML Bottle EYEBOTH SCH ×2 (09:08→20:39)
[2019-06-29] MEDS: Indacaterol/Glycopyrrolate 1 EA Cap.W.Dev Kit of 6 IH SCH ×2 (09:09→20:53)
--- NOTE | 2019-06-29 10:54 | PCM.PN ---
- General Info Date of Service: 06/29/19 Subjective Update: Patient sitting up in wheelchair feeding herself breakfast during rounds. Functional Status: Reports: Pain Controlled, Tolerating Diet, Urinating, Incentive Spirometry. Denies: New Symptoms - Review of Systems General: Denies: Fatigue Pulmonary: Reports: Cough. Denies: Shortness of Breath Cardiovascular: Denies: Chest Pain Psychiatric: Reports: No Symptoms - Patient Data Vitals - Most Recent: Last Vital Signs Temp 97.5 F 06/29/19 10:15 Pulse 77 06/29/19 10:15 Resp 22 H 06/29/19 10:15 BP 97/58 L 06/29/19 10:15 Pulse Ox 92 L 06/29/19 10:15 Weight - Most Recent: 196 lb I&O - Last 24 Hours: Intake & Output 06/28/19 06/29/19 06/29/19 22:59 06:59 14:59 Intake Total 420 50 Balance 420 50 Lab Results Last 24 Hours: Laboratory Results - last 24 hr 06/29/19 06/29/19 06/29/19 Range/Units 07:10 07:10 08:50 WBC 5.93 (5.00-10.00) 10^3/uL RBC 4.61 (3.80-5.50) 10^6/uL Hgb 12.5 (12.0-16.0) g/dL Hct 40.3 (37.0-47.0) % MCV 87.4 (82.0-92.0) fL MCH 27.1 (27.0-31.0) pg MCHC 31.0 L (32.0-36.0) g/dL RDW 15.1 H (11.5-14.5) % Plt Count 173 (150-400) 10^3/uL MPV 9.7 (7.4-10.4) fL Immature Gran % (Auto) 0.2 (0.0-5.0) % Neut % (Auto) 66.6 (50.0-70.0) % Lymph % (Auto) 17.0 L (20.0-40.0) % Hand % (Auto) 9.4 H (2.0-8.0) % Eos % (Auto) 6.1 H (1.0-3.0) % Baso % (Auto) 0.7 (0.0-1.0) % Immature Gran # (Auto) 0.01 (0.00-0.50) 10^3/uL Neut # (Auto) 3.95 (2.50-7.00) 10^3/uL Lymph # (Auto) 1.01 (1.00-4.00) 10^3/uL Hand # (Auto) 0.56 (0.10-0.80) 10^3/uL Eos # (Auto) 0.36 H (0.10-0.30) 10^3/uL Baso # (Auto) 0.04 (0.00-0.10) 10^3/uL Sodium 169 H* D 143 D (136-145) mmol/L Potassium 4.7 (3.3-5.3) mmol/L Chloride 127 H D 105 D (98-115) mmol/L Carbon Dioxide 27.1 (21.0-32.0) mmol/L Anion Gap 19.6 H (5-15) mmol/L BUN 12 (6-25) mg/dL Creatinine 0.74 (0.51-1.17) mg/dL Est Cr Clr Drug Dosing 45.14 mL/min Estimated GFR (MDRD) > 60 mL/min Glucose 90 (75 - 99) mg/dL Calcium 8.8 (8.7-10.3) mg/dL Med Orders - Current: Current Medications Acetaminophen (Tylenol) 650 mg PO BID [facility] [place] Last Admin: 06/29/19 09:02 Dose: 650 mg Albuterol (Proventil Neb Soln) 2.5 mg INH BID PRN PRN Reason: Shortness of Breath Apixaban (Eliquis) 5 mg PO BID [facility] [place] Last Admin: 06/29/19 09:02 Dose: 5 mg Artificial Tears (Refresh Tears 0.5%) 0 ml EYEBOTH TID@0500,1100,2000 [facility] [place] Last Admin: 06/29/19 05:10 Dose: 1 drop Aspirin (Aspirin) 81 mg PO WITHBREAKFAST [facility] [place] Last Admin: 06/29/19 09:02 Dose: 81 mg Atorvastatin Calcium (Lipitor) 20 mg PO BEDTIME [facility] [place] Last Admin: 06/28/19 20:23 Dose: 20 mg Atropine Sulfate (Atropine 0.1 Mg/Ml) 0 mg IVPUSH ASDIRECTED PRN PRN Reason: Heart. Brimonidine Tartrate (Brimonidine Tartrate 0.2% Ophth Soln) 0 ml EYEBOTH BID [facility] [place] Last Admin: 06/29/19 09:08 Dose: 1 drop Buspirone HCl (Buspar) 5 mg PO 0800,1600 [facility] [place] Last Admin: 06/29/19 09:01 Dose: 5 mg Cholecalciferol (Vitamin D3) 50 mcg PO DAILY [facility] [place] Last Admin: 06/29/19 09:01 Dose: 50 mcg Epinephrine HCl (Epinephrine 1:10,000) 1 mg IVPUSH ASDIRECTED PRN PRN Reason: Heart. Gabapentin (Neurontin) 100 mg PO DAILY [facility] [place] Last Admin: 06/29/19 09:02 Dose: 100 mg Gabapentin (Neurontin) 200 mg PO BEDTIME [facility] [place] Last Admin: 06/28/19 20:25 Dose: 200 mg Glycopyrrolate/Indacaterol (Utibron Neohaler 27.5-15.6 Mcg) 0 each IH BID [facility] [place] Last Admin: 06/29/19 09:09 Dose: 1 inhalation Lactobacillus Acidophilus/Rhamnosus (Multi-Krys Plus) 1 cap PO DAILY [facility] [place] Last Admin: 06/29/19 09:01 Dose: 1 cap Latanoprost (Xalatan 0.005% Ophth Soln) 0 ml EYEBOTH BEDTIME [facility] [place] Last Admin: 06/28/19 20:30 Dose: 1 drop Levothyroxine Sodium (Synthroid) 50 mcg PO ACBREAKFAST [facility] [place] Last Admin: 06/29/19 07:28 Dose: 50 mcg Lidocaine HCl (Xylocaine 2%) 0 mg IVPUSH ASDIRECTED PRN PRN Reason: Heart. Magnesium Hydroxide (Milk Of Magnesia) 30 ml PO DAILY PRN PRN Reason: Constipation Metoprolol Tartrate (Lopressor) 25 mg PO BID [facility] [place] Last Admin: 06/29/19 09:02 Dose: 25 mg Multivitamins/Minerals (Centrum) 1 tab PO DAILY [facility] [place] Last Admin: 06/29/19 09:02 Dose: 1 tab Nitroglycerin (Nitrostat) 0.4 mg SL ASDIRECTED PRN PRN Reason: Heart. Omeprazole (Omeprazole) 20 mg PO ACBREAKFAST [facility] [place] Last Admin: 06/29/19 07:28 Dose: 20 mg Sertraline HCl (Zoloft) 50 mg PO DAILY [facility] [place] Last Admin: 06/29/19 09:02 Dose: 50 mg Sodium Chloride (Saline Flush) 10 ml FLUSH Q8HR PRN PRN Reason: keep vein open Last Admin: 06/27/19 20:14 Dose: 10 ml Trazodone HCl (Trazodone) 50 mg PO BEDTIME [facility] [place] Last Admin: 06/28/19 20:23 Dose: 50 mg Discontinued Medications Artificial Tears (Liquitears 1.4% Ophth Soln) 0 ml EYEBOTH TID@,,20 [facility] [place] Last Admin: 06/28/19 05:26 Dose: Not Given Buspirone HCl (Buspar) 5 mg PO BID [facility] [place] Last Admin: 06/27/19 20:59 Dose: 5 mg Losartan Potassium (Cozaar) 75 mg PO DAILY [facility] [place] Last Admin: 06/28/19 09:32 Dose: Not Given Metoprolol Tartrate (Lopressor) 5 mg IVPUSH ONETIME ONE Stop: 06/27/19 14:53 Last Admin: 06/27/19 16:38 Dose: 5 mg Metoprolol Tartrate (Lopressor) 5 mg IVPUSH ONETIME ONE Stop: 06/27/19 18:39 Last Admin: 06/27/19 18:54 Dose: 5 mg Metoprolol Tartrate (Lopressor) 5 mg IVPUSH Q1H PRN PRN Reason: Tachycardia Metoprolol Tartrate (Lopressor) 5 mg IVPUSH ONETIME ONE Stop: 06/27/19 19:30 Last Admin: 06/27/19 20:12 Dose: 5 mg Non-Formulary Medication (Benzocaine [Orajel]) 1 applic BUCCAL TID PRN PRN Reason: sore gums Non-Formulary Medication (Guaifenesin [Liquituss Gg]) 10 ml PO BID PRN PRN Reason: Cough Non-Formulary Medication (Pantoprazole Sodium [Protonix]) 20 mg PO DAILY@0500 [facility] - Exam Quality Assessment: DVT Prophylaxis (on eliquis). No: Supplemental Oxygen General: Alert, Oriented (to self), Cooperative, No Acute Distress Lungs: Clear to Auscultation, Normal Respiratory Effort Cardiovascular: Regular Rate, No Murmurs, Irregular Rhythm Extremities: Other (trace pitting edema to BLE) Skin: Warm, Dry Neurological: Normal Speech Psy/Mental Status: Alert, Normal Affect, Normal Mood Sepsis Event Note - Evaluation Sepsis Screening Result: Sepsis Risk - Focused Exam Vital Signs: Vital Signs Temp Pulse Pulse Resp BP BP Pulse Ox 06/29/19 10:15 97.5 F 77 22 H 97/58 L 92 L 06/29/19 09:02 95 112/70 06/29/19 06:50 97.4 F 76 16 99/59 L 93 L 06/29/19 03:00 96.5 F 68 18 105/60 93 L 06/28/19 23:00 97.3 F 104 H 18 101/60 90 L Date Exam was Performed: 06/29/19 Time Exam was Performed: 10:55 - Problem List Review Problem List Initiated/Reviewed/Updated: Yes - My Orders Last 24 Hours: My Active Orders 06/28/19 11:00 Carboxymethylcellulose Sodium [Refresh Tears 0.5%] 0 ml EYEBOTH TID@0500,1100, 2000 06/28/19 11:02 Incentive Spirometry [RT Incentive Spirometry] [RC] Q2HWA 06/29/19 05:26 Communication Order [RC] 0900,2099 - Plan Plan:: HPI: This is an 84 yo female who was evaluated in the clinic yesterday due to shortness of breath, weakness, and tachycardia. NH reported that patient had two emesis on 06/24 and 06/25/19 and the following day she required oxygen for O2 sat of 88-89%. Reported to have a congested cough, diminished lung sounds, and tachycardia. Weight down 5 lbs in approximately 2 weeks. Patient was found to be in new onset atrial flutter/fib with concern for aspiration pneumonia. She was subsequently admitted for further work-up and treatment. She is a resident of the [facility]. Pertinent Clinic Work-up: WBC 5.7 w/o neutrophilia CXR noted radiographically mild fluid overload or failure ESR 31 EKG atrial flutter-fibrillation with RVR (113 bpm), LVH, inferior and anteroseptal infarcts-age undetermined Overnight update: HR between 70-110 bpm in past 24 hours. She has remained afebrile and has not required oxygen. Primary Impression/Plan: Atrial flutter-fibrillation, new onset, improving. In the last 12 hours, patient has had improvement in heart rate into the 70s with one time episode of 104 bpm. BP 97-100s systolic. Continue telemetry monitoring. Continue lopressor 25 mg BID. [id number] score 7. Continue eliquis 5 mg BID. Tachypnea, likely related to tachycardia, improving. WBC 5.9 w/o neutrophilia. Procalcitonin 0.04. CXR not showing infiltrate. BNP 143. Does not appear to be clinically fluid overloaded. Troponin 0.04. Will continue to monitor. Does have underlying COPD. Continue incentive spirometry. Primary hypothyroidism, new onset. TSH 78, Free T4 <0.02, T3 pending. Continue levothyroxine. Repeat levels in 8 weeks. Secondary Impression/Plan: COPD. Continue albuterol neb PRN, Utibron Neohaler (therapeutic substitution). HTN. Continue holding losartan and likely will discontinue this on discharge. 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 Decreased home aspirin to 81 mg daily given addition of eliquis. Will require referral to anti-coag clinic on discharge. Chronic diastolic CHF. ECHO (2014) EF 60%, normal systolic function, mild diastolic dysfunction. Not on any diuretics. HLD. Continue lipitor 40 mg daily. LDL 93 (06/2019). UMBERTO. Continue buspar 5 mg BID, zoloft 50 mg daily. Panic disorder. Psychophysiological insomnia. Continue trazodone 50 mg at HS. Normocytic anemia, history. Postherpetic neuralgia. Continue gabapentin 100 mg AM and 200 mg PM. Bilateral hearing loss. GERD. Continue omeprazole 20 mg daily (therapeutic substitution). OA of bilateral knees. Continue tylenol 650 mg BID. Glaucoma. Continue brimodine, refresh tears, and latanoprost. DVT prophylaxis. On eliquis. Overall plan: Given slight increases in heart rate at times, patient will benefit from one more day of telemetry monitoring and will adjust lopressor if HR persistently >90 bpm. Likely will be able to be discharged back to SNF tomorrow. Nurse updated [place] on plan of care.
[2019-06-29] MEDS: atorvaSTATin 10 MG Tab PO SCH (20:42)
[2019-06-29] MEDS: traZODone 50 MG Tab PO SCH (20:43)
[2019-06-29] MEDS: Latanoprost 0.005% Ophth Soln 2.5 ML Bottle EYEBOTH SCH (20:50)
[2019-06-30] MEDS: Carboxymethylcellulose Sodium 0.5% Ophth Soln 15 ML Bottle EYEBOTH SCH ×3 (05:13→20:09)
[2019-06-30 06:51] LABS: ANION GAP 14.4 mmol/L (5-15); CHLORIDE,CL 105 mmol/L (98-115); SODIUM,NA 142 mmol/L (136-145)
--- NOTE | 2019-06-30 07:02 | CR ---
[id number] RAD/RAD Chest PA or AP 1V EXAM: RAD Chest PA or AP 1V INDICATION: SOB/DYSPNEA COMPARISON: September 2016. DISCUSSION: Cardiomegaly and central vascular congestion. Findings are nonspecific but can be seen with early changes of congestive heart failure exacerbation. No other significant abnormality. IMPRESSION: As above. Livan Wade MD 06/30/19 0701 Thank you for allowing us to participate in the care of your patient.
[2019-06-30] MEDS ORDERED: Furosemide 40 MG/4 ML VIAL IVPUSH ONE (07:33)
[2019-06-30] MEDS: Omeprazole 20 MG Cap.CR PO SCH (07:46)
[2019-06-30] MEDS: Levothyroxine 50 MCG Tab PO SCH (07:46)
[2019-06-30] MEDS: busPIRone 5 MG Tab PO SCH ×2 (08:05→16:19)
[2019-06-30] MEDS: Aspirin 81 MG Tab.Chew PO SCH (08:05)
[2019-06-30] MEDS: Apixaban 5 MG Tab PO SCH ×2 (08:52→20:12)
[2019-06-30] MEDS: Acetaminophen 325 MG Tab PO SCH ×2 (08:52→20:12)
[2019-06-30] MEDS: B.Bifidum/B.Longum/L.Acidophilus/L.Rhamnosus (Probiotic) Cap PO SCH (08:52)
[2019-06-30] MEDS: Gabapentin 100 MG Cap PO SCH ×2 (08:58→20:13)
[2019-06-30] MEDS: Brimonidine 0.2% Ophth Soln 15 ML Bottle EYEBOTH SCH ×2 (08:58→20:10)
[2019-06-30] MEDS: Cholecalciferol (Vitamin D3) 25 MCG Tab PO SCH (08:58)
[2019-06-30] MEDS: Multivitamins with Minerals/Iron/Folic Acid/Lycopene Tab PO SCH (08:58)
[2019-06-30] MEDS: Sertraline 50 MG Tab PO SCH (08:58)
[2019-06-30] MEDS: Metoprolol Tartrate 25 MG Tab PO SCH ×2 (08:59→20:14)
[2019-06-30] MEDS: Indacaterol/Glycopyrrolate 1 EA Cap.W.Dev Kit of 6 IH SCH ×2 (09:02→20:26)
--- NOTE | 2019-06-30 10:58 | PCM.PN ---
- General Info Date of Service: 06/30/19 Functional Status: Reports: Tolerating Diet, Urinating, New Symptoms (left lower abdominal pain) - Review of Systems General: Reports: Fatigue. Denies: Fever HEENT: Denies: Headaches Pulmonary: Denies: Shortness of Breath, Cough Cardiovascular: Denies: Chest Pain Gastrointestinal: Reports: Abdominal Pain. Denies: Constipation, Decreased Appetite, Diarrhea, Nausea, Vomiting - Patient Data Vitals - Most Recent: Last Vital Signs Temp 96.9 F 06/30/19 06:59 Pulse 80 06/30/19 08:59 Resp 24 H 06/30/19 06:59 BP 116/64 06/30/19 08:59 Pulse Ox 97 06/30/19 06:59 Weight - Most Recent: 196 lb I&O - Last 24 Hours: Intake & Output 06/29/19 06/30/19 06/30/19 22:59 06:59 14:59 Intake Total 500 250 Balance 500 250 Lab Results Last 24 Hours: Laboratory Results - last 24 hr 06/30/19 06/30/19 Range/Units 06:05 06:05 WBC 6.65 (5.00-10.00) 10^3/uL RBC 4.57 (3.80-5.50) 10^6/uL Hgb 12.7 (12.0-16.0) g/dL Hct 39.7 (37.0-47.0) % MCV 86.9 (82.0-92.0) fL MCH 27.8 (27.0-31.0) pg MCHC 32.0 (32.0-36.0) g/dL RDW 15.0 H (11.5-14.5) % Plt Count 182 (150-400) 10^3/uL MPV 10.1 (7.4-10.4) fL Immature Gran % (Auto) 0.2 (0.0-5.0) % Neut % (Auto) 71.1 H (50.0-70.0) % Lymph % (Auto) 14.4 L (20.0-40.0) % Kings % (Auto) 9.0 H (2.0-8.0) % Eos % (Auto) 4.7 H (1.0-3.0) % Baso % (Auto) 0.6 (0.0-1.0) % Immature Gran # (Auto) 0.01 (0.00-0.50) 10^3/uL Neut # (Auto) 4.73 (2.50-7.00) 10^3/uL Lymph # (Auto) 0.96 L (1.00-4.00) 10^3/uL Kings # (Auto) 0.60 (0.10-0.80) 10^3/uL Eos # (Auto) 0.31 H (0.10-0.30) 10^3/uL Baso # (Auto) 0.04 (0.00-0.10) 10^3/uL Sodium 142 (136-145) mmol/L Potassium 3.8 (3.3-5.3) mmol/L Chloride 105 (98-115) mmol/L Carbon Dioxide 26.4 (21.0-32.0) mmol/L Anion Gap 14.4 (5-15) mmol/L BUN 12 (6-25) mg/dL Creatinine 0.71 (0.51-1.17) mg/dL Est Cr Clr Drug Dosing 47.05 mL/min Estimated GFR (MDRD) > 60 mL/min Glucose 94 (75 - 99) mg/dL Calcium 8.8 (8.7-10.3) mg/dL Troponin I < 0.04 (0.00-0.070) ng/mL B-Natriuretic Peptide 457 H (0-100) pg/mL Med Orders - Current: Current Medications Acetaminophen (Tylenol) 650 mg PO BID ON LICENSE OF [facility] Last Admin: 06/30/19 08:52 Dose: 650 mg Albuterol (Proventil Neb Soln) 2.5 mg INH BID PRN PRN Reason: Shortness of Breath Last Admin: 06/30/19 05:10 Dose: 2.5 mg Apixaban (Eliquis) 5 mg PO BID ON LICENSE OF [facility] Last Admin: 06/30/19 08:52 Dose: 5 mg Artificial Tears (Refresh Tears 0.5%) 0 ml EYEBOTH TID@0500,1100,2000 ON LICENSE OF [facility] Last Admin: 06/30/19 05:13 Dose: 1 drop Aspirin (Aspirin) 81 mg PO WITHBREAKFAST ON LICENSE OF [facility] Last Admin: 06/30/19 08:05 Dose: 81 mg Atorvastatin Calcium (Lipitor) 20 mg PO BEDTIME ON LICENSE OF [facility] Last Admin: 06/29/19 20:42 Dose: 20 mg Atropine Sulfate (Atropine 0.1 Mg/Ml) 0 mg IVPUSH ASDIRECTED PRN PRN Reason: Heart. Brimonidine Tartrate (Brimonidine Tartrate 0.2% Ophth Soln) 0 ml EYEBOTH BID ON LICENSE OF [facility] Last Admin: 06/30/19 08:58 Dose: 1 drop Buspirone HCl (Buspar) 5 mg PO 0800,1600 ON LICENSE OF [facility] Last Admin: 06/30/19 08:05 Dose: 5 mg Cholecalciferol (Vitamin D3) 50 mcg PO DAILY ON LICENSE OF [facility] Last Admin: 06/30/19 08:58 Dose: 50 mcg Epinephrine HCl (Epinephrine 1:10,000) 1 mg IVPUSH ASDIRECTED PRN PRN Reason: Heart. Gabapentin (Neurontin) 100 mg PO DAILY ON LICENSE OF [facility] Last Admin: 06/30/19 08:58 Dose: 100 mg Gabapentin (Neurontin) 200 mg PO BEDTIME ON LICENSE OF [facility] Last Admin: 06/29/19 20:47 Dose: 200 mg Glycopyrrolate/Indacaterol (Utibron Neohaler 27.5-15.6 Mcg) 0 each IH BID ON LICENSE OF [facility] Last Admin: 06/30/19 09:02 Dose: 1 inhalation Lactobacillus Acidophilus/Rhamnosus (Multi-Krys Plus) 1 cap PO DAILY ON LICENSE OF [facility] Last Admin: 06/30/19 08:52 Dose: 1 cap Latanoprost (Xalatan 0.005% Ophth Soln) 0 ml EYEBOTH BEDTIME ON LICENSE OF [facility] Last Admin: 06/29/19 20:50 Dose: 1 drop Levothyroxine Sodium (Synthroid) 50 mcg PO ACBREAKFAST ON LICENSE OF [facility] Last Admin: 06/30/19 07:46 Dose: 50 mcg Lidocaine HCl (Xylocaine 2%) 0 mg IVPUSH ASDIRECTED PRN PRN Reason: Heart. Magnesium Hydroxide (Milk Of Magnesia) 30 ml PO DAILY PRN PRN Reason: Constipation Metoprolol Tartrate (Lopressor) 37.5 mg PO BID ON LICENSE OF [facility] Last Admin: 06/30/19 08:59 Dose: 37.5 mg Multivitamins/Minerals (Centrum) 1 tab PO DAILY ON LICENSE OF [facility] Last Admin: 06/30/19 08:58 Dose: 1 tab Nitroglycerin (Nitrostat) 0.4 mg SL ASDIRECTED PRN PRN Reason: Heart. Omeprazole (Omeprazole) 20 mg PO ACBREAKFAST ON LICENSE OF [facility] Last Admin: 06/30/19 07:46 Dose: 20 mg Sertraline HCl (Zoloft) 50 mg PO DAILY ON LICENSE OF [facility] Last Admin: 06/30/19 08:58 Dose: 50 mg Sodium Chloride (Saline Flush) 10 ml FLUSH Q8HR PRN PRN Reason: keep vein open Last Admin: 06/27/19 20:14 Dose: 10 ml Trazodone HCl (Trazodone) 50 mg PO BEDTIME ON LICENSE OF [facility] Last Admin: 06/29/19 20:43 Dose: 50 mg Discontinued Medications Artificial Tears (Liquitears 1.4% Ophth Soln) 0 ml EYEBOTH TID@,,20 ON LICENSE OF [facility] Last Admin: 06/28/19 05:26 Dose: Not Given Buspirone HCl (Buspar) 5 mg PO BID ON LICENSE OF [facility] Last Admin: 06/27/19 20:59 Dose: 5 mg Furosemide (Lasix) 20 mg IVPUSH NOW ONE Stop: 06/30/19 07:34 Last Admin: 06/30/19 07:46 Dose: 20 mg Losartan Potassium (Cozaar) 75 mg PO DAILY ON LICENSE OF [facility] Last Admin: 06/28/19 09:32 Dose: Not Given Metoprolol Tartrate (Lopressor) 5 mg IVPUSH ONETIME ONE Stop: 06/27/19 14:53 Last Admin: 06/27/19 16:38 Dose: 5 mg Metoprolol Tartrate (Lopressor) 5 mg IVPUSH ONETIME ONE Stop: 06/27/19 18:39 Last Admin: 06/27/19 18:54 Dose: 5 mg Metoprolol Tartrate (Lopressor) 5 mg IVPUSH Q1H PRN PRN Reason: Tachycardia Metoprolol Tartrate (Lopressor) 5 mg IVPUSH ONETIME ONE Stop: 06/27/19 19:30 Last Admin: 06/27/19 20:12 Dose: 5 mg Metoprolol Tartrate (Lopressor) 25 mg PO BID ON LICENSE OF [facility] Last Admin: 06/29/19 09:02 Dose: 25 mg Non-Formulary Medication (Benzocaine [Orajel]) 1 applic BUCCAL TID PRN PRN Reason: sore gums Non-Formulary Medication (Guaifenesin [Liquituss Gg]) 10 ml PO BID PRN PRN Reason: Cough Non-Formulary Medication (Pantoprazole Sodium [Protonix]) 20 mg PO DAILY@0500 LYNDA - Exam Quality Assessment: Supplemental Oxygen (2 liters per nasal cannula for comfort , 97%), DVT Prophylaxis (On eliquis). No: Urine Catheter General: Alert, Oriented (to self), Cooperative, No Acute Distress Lungs: Normal Respiratory Effort, Decreased Breath Sounds (throughout lung dodson), Crackles (LLL) Cardiovascular: Regular Rate, Irregular Rhythm, Murmurs (2/6, systolic over aorta and pulmonic area) GI/Abdominal Exam: Soft, No Distention, Hernia (LLQ, reducible, tender) Extremities: Other (trace edema to BLE) Skin: Warm, Dry, Intact Neurological: Normal Speech, Other (left sided hemiplegia) Psy/Mental Status: Alert, Normal Affect, Normal Mood Sepsis Event Note - Evaluation Sepsis Screening Result: No Definite Risk - Focused Exam Vital Signs: Vital Signs Temp Temp Pulse Pulse Resp BP BP 06/30/19 08:59 80 116/64 06/30/19 06:59 96.9 F 78 24 H 102/72 06/30/19 03:00 96.4 F 102 H 16 145/94 H 06/29/19 23:00 97.0 F 73 20 107/74 Pulse Ox 06/30/19 08:59 06/30/19 06:59 97 06/30/19 03:00 93 L 06/29/19 23:00 93 L Date Exam was Performed: 06/30/19 Time Exam was Performed: 11:04 - Problem List Review Problem List Initiated/Reviewed/Updated: Yes - My Orders Last 24 Hours: My Active Orders 06/29/19 21:00 Metoprolol Tartrate [Lopressor] 37.5 mg PO BID 06/30/19 08:13 Intake and Output [RC] 1400,2200,0600 Weight Daily [Height and Weight] [RC] DAILY - Plan Plan:: HPI: This is an 84 yo female who was evaluated in the clinic yesterday (06/27/19 ) due to shortness of breath, weakness, and tachycardia. TN reported that patient had two emesis on 06/24 and 06/25/19 and the following day she required oxygen for O2 sat of 88-89%. Reported to have a congested cough, diminished lung sounds, and tachycardia. Weight down 5 lbs in approximately 2 weeks. Patient was found to be in new onset atrial flutter/fib with concern for aspiration pneumonia. She was subsequently admitted for further work-up and treatment. She is a resident of the [facility]. Pertinent Clinic Work-up: WBC 5.7 w/o neutrophilia CXR noted radiographically mild fluid overload or failure ESR 31 EKG atrial flutter-fibrillation with RVR (113 bpm), LVH, inferior and anteroseptal infarcts-age undetermined Overnight update: While in house last evening, HR noted to be 110-120 bpm at rest on conveyor monitor. Increased lopressor to 37.5 mg BID. Received call around 0530 d/t tachypnea, tachycardia, and 7 runs of Vtach (after albuterol neb ). Nurse noted new onset crackles. O2 sat 90-92% on room air. Patient reporting not being able to catch her breath. Orders given for lab and CXR. Primary Impression/Plan: Acute diastolic CHF exacerbation. BNP 457. Troponin <0.04. WBC 6.65 with left shift. BMP unremarkable. CXR noted mild central vascular congestion. Lasix 20 mg IV x 1 given. Add daily weights, I&O. ECHO (2014) EF 60%, normal systolic function, mild diastolic dysfunction. Will need outpatient ECHO. BMP in AM. Systolic murmur, new onset. 2/6 heard predominantly over aortic and pulmonic area. Atrial flutter-fibrillation, new onset. Continue lopressor and Eliquis. Continue telemetry. [id number] score 7. Tachypnea, likely related CHF exacerbation. Continue incentive spirometry. Does have underlying COPD and uses 1-2 liters of oxygen PRN at baseline. LLQ abdominal pain, question reducible hernia. Will continue to monitor. Adequate appetite and urine/stool output. No N/V. Primary hypothyroidism, new onset. TSH 78, Free T4 <0.02, T3 pending. Continue levothyroxine. Repeat levels in 8 weeks. Secondary Impression/Plan: COPD. Continue albuterol neb PRN, Utibron Neohaler (therapeutic substitution). HTN. Continue holding losartan and likely will discontinue this on discharge. 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 Decreased home aspirin to 81 mg daily given addition of eliquis. Will require referral to anti-coag clinic on discharge. HLD. Continue lipitor 40 mg daily. LDL 93 (06/2019). UMBERTO. Continue buspar 5 mg BID, zoloft 50 mg daily. Panic disorder. Psychophysiological insomnia. Continue trazodone 50 mg at HS. Normocytic anemia, history. Postherpetic neuralgia. Continue gabapentin 100 mg AM and 200 mg PM. Bilateral hearing loss. GERD. Continue omeprazole 20 mg daily (therapeutic substitution). OA of bilateral knees. Continue tylenol 650 mg BID. Glaucoma. Continue brimodine, refresh tears, and latanoprost. DVT prophylaxis. On eliquis. Overall plan: Due to CHF exacerbation and run of Vtach, patient will require at least 24 hours more of monitoring. BMP in AM. May be able to be discharged back to SNF tomorrow pending clinical picture. She will need a referral to the DOAC monitoring clinic through [place] on discharge.
[2019-06-30] MEDS: atorvaSTATin 10 MG Tab PO SCH (20:12)
[2019-06-30] MEDS: traZODone 50 MG Tab PO SCH (20:13)
[2019-06-30] MEDS: Latanoprost 0.005% Ophth Soln 2.5 ML Bottle EYEBOTH SCH (20:35)
[2019-07-01] MEDS: Carboxymethylcellulose Sodium 0.5% Ophth Soln 15 ML Bottle EYEBOTH SCH (05:39)
[2019-07-01 06:54] VITALS: BP 124/66
[2019-07-01 08:05] LABS: ANION GAP 14.8 mmol/L (5-15); CHLORIDE,CL 104 mmol/L (98-115); SODIUM,NA 143 mmol/L (136-145)
[2019-07-01] MEDS: Omeprazole 20 MG Cap.CR PO SCH (08:11)
[2019-07-01] MEDS: Levothyroxine 50 MCG Tab PO SCH (08:11)
[2019-07-01] MEDS: busPIRone 5 MG Tab PO SCH (08:12)
[2019-07-01] MEDS: Aspirin 81 MG Tab.Chew PO SCH (08:12)
[2019-07-01] MEDS: B.Bifidum/B.Longum/L.Acidophilus/L.Rhamnosus (Probiotic) Cap PO SCH (08:13)
[2019-07-01] MEDS: Apixaban 5 MG Tab PO SCH (08:13)
[2019-07-01] MEDS: Gabapentin 100 MG Cap PO SCH (08:13)
[2019-07-01] MEDS: Multivitamins with Minerals/Iron/Folic Acid/Lycopene Tab PO SCH (08:13)
[2019-07-01] MEDS: Acetaminophen 325 MG Tab PO SCH (08:14)
[2019-07-01] MEDS: Cholecalciferol (Vitamin D3) 25 MCG Tab PO SCH (08:14)
[2019-07-01] MEDS: Sertraline 50 MG Tab PO SCH (08:15)
[2019-07-01] MEDS: Metoprolol Tartrate 25 MG Tab PO SCH (08:30)
[2019-07-01 08:31] VITALS: PULSE 95
[2019-07-01] MEDS: Brimonidine 0.2% Ophth Soln 15 ML Bottle EYEBOTH SCH (09:28)
[2019-07-01] MEDS: Indacaterol/Glycopyrrolate 1 EA Cap.W.Dev Kit of 6 IH SCH (09:28)
--- NOTE | 2019-07-01 10:01 | PCM.DCSUM1 ---
Discharge Summary - Hospital Course Diagnosis: Stroke: No - Discharge Data Discharge Date: 07/01/19 Discharge Disposition: DC/Tfer to SNF 03 Condition: Good - Referral to Home Health Primary Care Physician: Park Sam PA-C - Patient Instructions Diet: Pureed Activity: As Tolerated, Cough & Deep Breathe Showering/Bathing: May Shower Notify Provider of: Fever, Nausea and/or Vomiting Other/Special Instructions: A referral has been placed through [facility] for blood thinner clinic to monitor her Eliquis. ECHO ordered through [facility] ( [facility]). Weigh weekly--report weight >4lbs. Have DC summary available for rounding provider. - Discharge Plan *PRESCRIPTION DRUG MONITORING PROGRAM REVIEWED*: Not Applicable *COPY OF PRESCRIPTION DRUG MONITORING REPORT IN PATIENT YAN: Not Applicable Prescriptions/Med Rec: Apixaban [Eliquis] 5 mg PO BID #60 tablet Aspirin 81 mg PO WITHBREAKFAST #30 tab.chew Levothyroxine [Synthroid] 50 mcg PO ACBREAKFAST #30 tablet Losartan [Cozaar] 25 mg PO DAILY #30 tab Metoprolol Tartrate [Lopressor] 37.5 mg PO BID #30 tablet Home Medications: Home Meds Cholecalciferol (Vitamin D3) [Vitamin D3] 2,000 units PO DAILY 11/06/14 [History ] Latanoprost 1 drop EYEBOTH BEDTIME 11/06/14 [History] Acetaminophen 650 mg PO BID 07/27/17 [History] Brimonidine Tartrate [Brimonidine Tartrate 0.2% Ophth Soln] 1 drop EYEBOTH BID 07/27/17 [History] L.acidoph,Paracasei, B.lactis [Probiotic] 1 each PO DAILY 07/27/17 [History] Loperamide HCl [Imodium A-D] 2 mg PO DAILY PRN 07/27/17 [History] Magnesium Hydroxide [Milk of Magnesia] 30 ml PO DAILY PRN 07/27/17 [History] Multivitamin [Multivitamins] 1 each PO DAILY 07/27/17 [History] atorvaSTATin [Lipitor] 20 mg PO BEDTIME 07/27/17 [History] busPIRone [Buspar] 5 mg PO BID 07/27/17 [History] traZODone HCl [Trazodone HCl] 50 mg PO BEDTIME 07/27/17 [History] Albuterol [Proventil Neb Soln] 3 ml INH BID PRN 06/27/19 [History] Benzocaine [Orajel] 1 applic BUCCAL TID PRN 06/27/19 [History] Carboxymethylcell/Glycerin/Pf [Refresh Optive Sensitive Drops] 1 drop EYEBOTH TID@05,11,20 06/27/19 [History] Eucalyptus Oil/Menthol/Camphor [Vicks Vaporub Ointment] 1 applic TOP Q12H PRN [History] Gabapentin [Neurontin] 100 mg PO DAILY 06/27/19 [History] Gabapentin [Neurontin] 200 mg PO BEDTIME 06/27/19 [History] Pantoprazole Sodium [Protonix] 20 mg PO DAILY@0500 06/27/19 [History] Sertraline [Zoloft] 50 mg PO DAILY 06/27/19 [History] Umeclidinium Brm/Vilanterol Tr [Anoro Ellipta 62.5-25 MCG] 1 puff INH DAILY [History] guaiFENesin [Liquituss GG] 10 ml PO BID PRN 06/27/19 [History] Apixaban [Eliquis] 5 mg PO BID #60 tablet 07/01/19 [Rx] Aspirin 81 mg PO WITHBREAKFAST #30 tab.chew 07/01/19 [Rx] Levothyroxine [Synthroid] 50 mcg PO ACBREAKFAST #30 tablet 07/01/19 [Rx] Losartan [Cozaar] 25 mg PO DAILY #30 tab 07/01/19 [Rx] Metoprolol Tartrate [Lopressor] 37.5 mg PO BID #30 tablet 07/01/19 [Rx] - Discharge Summary/Plan Comment DC Time >30 min.: Yes Discharge Summary/Plan Comment: Final diagnosis --Acute diastolic CHF exacerbation. --Systolic murmur, new onset. --Atrial flutter-fibrillation, new onset. Continue lopressor and Eliquis. [id number] score 7. --Primary hypothyroidism, new onset. TSH 78, Free T4 <0.02, T3 pending upon DC newly started levothyroxine. Repeat levels in 8 weeks. Chronic/stable problems --COPD. Continue albuterol neb PRN, --HTN, reduced ARB, newly added BB Hx of CVA with left hemiparesis. Decreased home jASA to 81 mg daily given addition of eliquis. --HLD. Continue lipitor 40 mg daily. LDL 93 (06/2019). --UMBERTO. Continue buspar 5 mg BID, zoloft 50 mg daily. --Panic disorder. --Psychophysiological insomnia. Continue trazodone 50 mg at HS. --Normocytic anemia, history. --Postherpetic neuralgia. Continue gabapentin 100 mg AM and 200 mg PM. --Bilateral hearing loss. --GERD. PPI --OA of bilateral knees. Continue tylenol 650 mg BID. --Glaucoma. Continue brimodine, refresh tears, and latanoprost. Pre-Hospital history 84 yo female who is a resident of the [facility] was evaluated in clinic on 06/27/19 2/2 shortness of breath, weakness, and tachycardia. MN reported that patient had two emesis on 06/24 and 06/25/19 and the following day she required oxygen for O2 sat of 88-89%. Reported to have a congested cough, diminished lung sounds, and tachycardia. Weight down 5 lbs in approximately 2 weeks frame per report. For clinic the patient was noted to be new onset atrial flutter/fib with concern for aspiration pneumonia. She was subsequently admitted for further work-up and treatment. Pertinent Clinic Work-up: WBC 5.7 w/o neutrophilia CXR noted radiographically mild fluid overload or failure ESR 31 EKG atrial flutter-fibrillation with RVR (113 bpm), LVH, inferior and anteroseptal infarcts-age undetermined Hospital Course: But complicated hospital course as a-flutter typically more difficult to control rate versus atrial fibrillation. Patient was given increased some of Lopressor with fairly controlled rates however she did have runs of V. tach shortness of breath mainly after her beta-2 agonist albuterol was given. Have exacerbation of her CHF seem to respond with Lasix. She was started on factor Xa inhibitor Eliquis p.o. twice daily which she tolerated well signs of complication, home aspirin due to CVA was decreased to 81 mg on discharge. Oxygen was titrated down however she will be discharged on 1 L. Medications changes/adjustments upon discharge Eliquis 5 mg p.o. twice daily, (newly added) Metoprolol tartrate, 37.5 mg p.o. BID, (newly added) Levothyroxine 50 mcg daily, (newly added) Losartan decreased to 25 mg ASA, decreased to 81 mg due to added factor Xa inhibitor Disposition/overall plan --Resident will be discharged back to long-term care --Referral for coagulation clinic placed --Echocardiogram outpatient, placed --Oxygen 1 L/min NC TKS 90-93% - Patient Data Vitals - Most Recent: Last Vital Signs Temp 96.1 F 07/01/19 06:52 Pulse 95 07/01/19 08:30 Resp 20 07/01/19 06:52 BP 124/66 07/01/19 08:30 Pulse Ox 94 L 07/01/19 06:52 Weight - Most Recent: 192 lb 2 oz I&O - Last 24 hours: Intake & Output 06/30/19 07/01/19 07/01/19 22:59 06:59 14:59 Intake Total 150 50 Balance 150 50 Lab Results - Last 24 hrs: Laboratory Results - last 24 hr 07/01/19 Range/Units 07:15 Sodium 143 (136-145) mmol/L Potassium 3.8 (3.3-5.3) mmol/L Chloride 104 (98-115) mmol/L Carbon Dioxide 28.0 (21.0-32.0) mmol/L Anion Gap 14.8 (5-15) mmol/L BUN 12 (6-25) mg/dL Creatinine 0.84 (0.51-1.17) mg/dL Est Cr Clr Drug Dosing 39.77 mL/min Estimated GFR (MDRD) > 60 mL/min Glucose 87 (75 - 99) mg/dL Calcium 8.6 L (8.7-10.3) mg/dL Med Orders - Current: Current Medications Acetaminophen (Tylenol) 650 mg PO BID [facility] Last Admin: 07/01/19 08:14 Dose: 650 mg Albuterol (Proventil Neb Soln) 2.5 mg INH BID PRN PRN Reason: Shortness of Breath Last Admin: 06/30/19 05:10 Dose: 2.5 mg Apixaban (Eliquis) 5 mg PO BID [facility] Last Admin: 07/01/19 08:13 Dose: 5 mg Artificial Tears (Refresh Tears 0.5%) 0 ml EYEBOTH TID@0500,1100,2000 [facility] Last Admin: 07/01/19 05:39 Dose: 1 drop Aspirin (Aspirin) 81 mg PO WITHBREAKFAST [facility] Last Admin: 07/01/19 08:12 Dose: 81 mg Atorvastatin Calcium (Lipitor) 20 mg PO BEDTIME [facility] Last Admin: 06/30/19 20:12 Dose: 20 mg Atropine Sulfate (Atropine 0.1 Mg/Ml) 0 mg IVPUSH ASDIRECTED PRN PRN Reason: Heart. Brimonidine Tartrate (Brimonidine Tartrate 0.2% Ophth Soln) 0 ml EYEBOTH BID [facility] Last Admin: 07/01/19 09:28 Dose: 1 drop Buspirone HCl (Buspar) 5 mg PO 0800,1600 [facility] Last Admin: 07/01/19 08:12 Dose: 5 mg Cholecalciferol (Vitamin D3) 50 mcg PO DAILY [facility] Last Admin: 07/01/19 08:14 Dose: 50 mcg Epinephrine HCl (Epinephrine 1:10,000) 1 mg IVPUSH ASDIRECTED PRN PRN Reason: Heart. Gabapentin (Neurontin) 100 mg PO DAILY [facility] Last Admin: 07/01/19 08:13 Dose: 100 mg Gabapentin (Neurontin) 200 mg PO BEDTIME [facility] Last Admin: 06/30/19 20:13 Dose: 200 mg Glycopyrrolate/Indacaterol (Utibron Neohaler 27.5-15.6 Mcg) 0 each IH BID [facility] Last Admin: 07/01/19 09:28 Dose: 1 inhalation Lactobacillus Acidophilus/Rhamnosus (Multi-Krys Plus) 1 cap PO DAILY [facility] Last Admin: 07/01/19 08:13 Dose: 1 cap Latanoprost (Xalatan 0.005% Ophth Soln) 0 ml EYEBOTH BEDTIME [facility] Last Admin: 06/30/19 20:35 Dose: 1 drop Levothyroxine Sodium (Synthroid) 50 mcg PO ACBREAKFAST [facility] Last Admin: 07/01/19 08:11 Dose: 50 mcg Lidocaine HCl (Xylocaine 2%) 0 mg IVPUSH ASDIRECTED PRN PRN Reason: Heart. Magnesium Hydroxide (Milk Of Magnesia) 30 ml PO DAILY PRN PRN Reason: Constipation Metoprolol Tartrate (Lopressor) 37.5 mg PO BID [facility] Last Admin: 07/01/19 08:30 Dose: 37.5 mg Multivitamins/Minerals (Centrum) 1 tab PO DAILY [facility] Last Admin: 07/01/19 08:13 Dose: 1 tab Nitroglycerin (Nitrostat) 0.4 mg SL ASDIRECTED PRN PRN Reason: Heart. Omeprazole (Omeprazole) 20 mg PO ACBREAKFAST [facility] Last Admin: 07/01/19 08:11 Dose: 20 mg Sertraline HCl (Zoloft) 50 mg PO DAILY [facility] Last Admin: 07/01/19 08:15 Dose: 50 mg Sodium Chloride (Saline Flush) 10 ml FLUSH Q8HR PRN PRN Reason: keep vein open Last Admin: 06/27/19 20:14 Dose: 10 ml Trazodone HCl (Trazodone) 50 mg PO BEDTIME [facility] Last Admin: 06/30/19 20:13 Dose: 50 mg Discontinued Medications Artificial Tears (Liquitears 1.4% Ophth Soln) 0 ml EYEBOTH TID@05,11,20 [facility] Last Admin: 06/28/19 05:26 Dose: Not Given Buspirone HCl (Buspar) 5 mg PO BID [facility] Last Admin: 06/27/19 20:59 Dose: 5 mg Furosemide (Lasix) 20 mg IVPUSH NOW ONE Stop: 06/30/19 07:34 Last Admin: 06/30/19 07:46 Dose: 20 mg Losartan Potassium (Cozaar) 75 mg PO DAILY [facility] Last Admin: 06/28/19 09:32 Dose: Not Given Metoprolol Tartrate (Lopressor) 5 mg IVPUSH ONETIME ONE Stop: 06/27/19 14:53 Last Admin: 06/27/19 16:38 Dose: 5 mg Metoprolol Tartrate (Lopressor) 5 mg IVPUSH ONETIME ONE Stop: 06/27/19 18:39 Last Admin: 06/27/19 18:54 Dose: 5 mg Metoprolol Tartrate (Lopressor) 5 mg IVPUSH Q1H PRN PRN Reason: Tachycardia Metoprolol Tartrate (Lopressor) 5 mg IVPUSH ONETIME ONE Stop: 06/27/19 19:30 Last Admin: 06/27/19 20:12 Dose: 5 mg Metoprolol Tartrate (Lopressor) 25 mg PO BID [facility] Last Admin: 06/29/19 09:02 Dose: 25 mg Non-Formulary Medication (Benzocaine [Orajel]) 1 applic BUCCAL TID PRN PRN Reason: sore gums Non-Formulary Medication (Guaifenesin [Liquituss Gg]) 10 ml PO BID PRN PRN Reason: Cough Non-Formulary Medication (Pantoprazole Sodium [Protonix]) 20 mg PO DAILY@0500 LYNDA
== END 2019-07-01 10:30 | DRG 308 ==
LOC: KA.MS 12:24
PROVIDERS: ADMIT Nurse Practitioner Family; ATTEND Family Medicine
DX: I48.92 Unspecified atrial flutter (principal); I50.33 Acute on chronic diastolic (congestive) heart failure; I69.354 Hemiplegia and hemiparesis following cerebral infarction affecting left non-dominant side; B02.29 Other postherpetic nervous system involvement; I11.0 Hypertensive heart disease with heart failure; I47.2 Ventricular tachycardia; I48.91 Unspecified atrial fibrillation; E03.9 Hypothyroidism, unspecified; J44.9 Chronic obstructive pulmonary disease, unspecified; E78.5 Hyperlipidemia, unspecified; F41.0 Panic disorder [episodic paroxysmal anxiety]; F51.04 Psychophysiologic insomnia; K21.9 Gastro-esophageal reflux disease without esophagitis; M17.0 Bilateral primary osteoarthritis of knee; H40.9 Unspecified glaucoma; H91.93 Unspecified hearing loss, bilateral; D64.9 Anemia, unspecified; Z79.82 Long term (current) use of aspirin
CPT/HCPCS: 36415; 71045; 80048; 82435; 83735; 83880; 84295; 84439; 84443; 84481; 84484; 85025; 94640; A9270-GY; J1940; J3490; J7613-GY